=== PATIENT | female | born 1980 | race Caucasian/White ===

== ENCOUNTER 2017-02-21 13:58 | Emergency (ER) | payer BC ==
[~2017-02-21] VITALS: Ht 160 cm; Wt 108.0 kg
[~2017-02-21 13:58] MED LIST: DECADRON2 MG PO; DILAUDID2 MG PO
[2017-02-21] MEDS ORDERED: FLEXERIL10 MG PO (18:39)
[2017-02-21] MEDS ORDERED: IBUPROFEN600 MG PO (18:39)
[2017-02-21 19:24] VITALS: BP 122/89
== END 2017-02-21 19:24 | disposition home or self-care (01) ==
LOC: EME 13:58
DX: S39.012A Strain of muscle, fascia and tendon of lower back, initial encounter (principal); R26.9 Unspecified abnormalities of gait and mobility; J45.909 Unspecified asthma, uncomplicated; Z88.8 Allergy status to other drugs, medicaments and biological substances; X50.9XXA Other and unspecified overexertion or strenuous movements or postures, initial encounter
CPT/HCPCS: 99281; 99284; J1885; J2060; J2270